=== PATIENT | female | born 1995 | race Caucasian/White ===

== ENCOUNTER 2019-01-28 15:04 | Outpatient (CLI) | payer OTHER ==
--- NOTE | 2019-01-28 15:45 | RAD ---
AP PELVIS: 01/28/19 HISTORY: Pelvic pain. Patient diagnosed with Ehler-Danlos syndrome. The pelvic ring is intact. SI joints are symmetric. Hip joints are normal in appearance. No ligamento us calcifications or other findings. IMPRESSION: Unremarkable AP pelvis. POS: TPC
--- NOTE | 2019-01-28 16:04 | RAD ---
CERVICAL SPINE SERIES WITH FLEXION AND EXTENSION AND OBLIQUE VIEWS TOTAL OF 8 VIEWS 01/28/19 HISTORY: Neck pain. History of Ehler-Danlos syndrome. The vertebral bodies are normal in height. Disc spaces all appear well preserved. No abnormal motion seen on the flexion or extension views. No soft tissue swelling. IMPRESSION: Unremarkable cervical spine series. POS: TPC
--- NOTE | 2019-01-28 16:06 | RAD ---
EXAM: XR Lumbar Spine Bending Min 4V PROVIDED CLINICAL HISTORY: Patient with connective tissue disorder. Diagnosed with Tg Danlos syndrome. COMPARISON: None FINDINGS: There are 5 nonrib-bearing lumbar-type vertebral bodies. The vertebral body heights and intervertebra l disc spaces are within normal limits. No fracture or subluxation is seen involving the lumbar spine. There is no abnormal translational motion seen between the flexion and extension views. IMPRESSION: No acute findings involving the lumbar spine.
== END 2019-01-28 15:05 | disposition home or self-care (01) ==
LOC: SCSRAD 15:04
DX: M54.9 Dorsalgia, unspecified (principal); M25.559 Pain in unspecified hip; Q79.6 Ehlers-Danlos syndromes
CPT/HCPCS: 72052; 72120; 72170

== ENCOUNTER 2019-03-09 08:37 | Outpatient (CLI) | payer OTHER ==
--- NOTE | 2019-03-09 09:07 | RAD ---
Exam: 5 VIEWS THORACIC SPINE: HISTORY: Patient is diagnosed with Tg-Danlos syndrome. Connective tissue disease. FINDINGS: There are 12 thoracic type vertebra. Thoracic spine vertebral body height is maintained. No fracture s. No malalignment in the neutral position. No malalignment upon extension or flexion. IMPRESSION: Unremarkable thoracic spine radiograph series. Transcribed Date/Time: 03/09/2019 9:17 AM
--- NOTE | 2019-03-09 09:51 | RAD ---
BILATERAL FROG-LEG LATERAL VIEW OF PELVIS/HIPS: Date: 03/09/19 HISTORY: Tg-Danlos syndrome. FINDINGS: There is now widening of the sacroiliac joints or the pubic symphysis. There is questionable mild scl erosis at the level of the left sacroiliac joint suggesting mild asymmetric left-sided sacroiliitis. No acute fracture or dislocation. IMPRESSION: Findings suggesting mild asymmetric left-sided sacroiliitis. Clinical correlation is required. Findin gs may be best assessed via cross-sectional imaging if clinically warranted. POS: OFF
== END 2019-03-09 08:38 | disposition home or self-care (01) ==
LOC: SCSRAD 08:37
PROVIDERS: ATTEND Internal Medicine
DX: M54.9 Dorsalgia, unspecified (principal); M25.559 Pain in unspecified hip; Q79.60 Ehlers-Danlos syndrome, unspecified
CPT/HCPCS: 72072; 72170

== ENCOUNTER 2022-08-07 15:27 | Outpatient (CLI) | payer BC | END 2022-08-07 15:28 | disposition home or self-care (01) | LOC: SCSRAD 15:27 | PROVIDERS: ATTEND Chiropractor | DX: M54.50 Low back pain, unspecified (principal) | CPT/HCPCS: 72100 ==